=== PATIENT | female | born 1960 | race African-American/Black ===

== ENCOUNTER 2017-12-13 10:19 | Emergency (ER) | payer OTHER ==
[~2017-12-13] VITALS: Ht 167.6 cm; Wt 91.6 kg
[2017-12-13] MEDS ORDERED: LIDOCAINE20 MG/1 M5 PO (14:00)
[2017-12-13 14:51] VITALS: BP 152/88
== END 2017-12-13 14:51 | disposition home or self-care (01) ==
LOC: EME 10:19
DX: J02.9 Acute pharyngitis, unspecified (principal); R05 Cough; J35.1 Hypertrophy of tonsils; I10 Essential (primary) hypertension; F32.9 Major depressive disorder, single episode, unspecified
CPT/HCPCS: 70360; 71046; 87502; 87651 90; 99281; 99284; J1100